=== PATIENT | male | born 2000 | race Caucasian/White ===

== ENCOUNTER 2024-12-26 08:29 | Inpatient (IN) | payer MEDICAID, SELFPAY ==
[2024-12-26] VITALS (8 sets, daily range): BP systolic 107–128; BP diastolic 58–78; PULSE 67–111; RESP 16–24; TEMP 36.6–36.7; O2SAT 90–97; BMI 28.2
--- NOTE | 2024-12-26 08:47 | ED_ITS ---
HPI - Psych General Chief Complaint: Psychiatric Symptoms Stated Complaint: FR STS EMO DIST,SI STS,PT FEELS TRAPPED/NOT TALKIN Time Seen by Provider: 12/26/24 08:46 Source: patient, family (mother), EMS, RN notes reviewed and old records reviewed Mode of arrival: EMS Limitations: altered mental status History of Present Illness ED Provider: Feng HPI Narrative: Patient is a 24-year-old male with history of ADHD not currently on medications presenting to the emergency department with altered mental status. Patient was found outside on the sidewalk rocking back and forth and crying by police. A bystander overheard patient making suicidal statements on the phone. Patient difficult to redirect on arrival, attempting to ambulate/leave, minimally cooperative with changing into hospital garb. Stating only ?I feel trapped, and opening his mouth as though he was screaming but with no sound coming out. Odor of ethanol detectable on his breath. When asked what his name was, he typed his last name on the computer. Related Data Home Medications ?Medication ?Instructions ?Recorded ?Confirmed No Known Home Meds 12/28/24 12/28/24 Allergies Allergy/AdvReac Type Severity Reaction Status Date / Time No Known Allergies Allergy Verified 12/26/24 18:43 Review of Systems 2 Review of Systems: As per HPI. Yes all other systems are reviewed and are negative Constitutional: Constitutional: Reports as per HPI Neurologic: Reports confusion Psychiatric: Psychiatric: Reports confusion [facility] Social History Social History Household Members: Family Housing: House Do you presently have visiting nurse or other home services: No Patient Tobacco Use Status: Current everyday Tobacco user Tobacco use type: Smokeless Tobacco Smoked in Last 30 Days: Yes e-Cigarette/Vaping Use: Currently Using Frequency of e-Cigarette/Vaping Use: Daily Patient Interested in Nicotine Replacement: No (Pt reported he does not want to use) Patient Given Instructions on How to Stop Smoking: Yes Date Education Initiated: 12/28/24 Second Hand Smoke Exposure: No Use of substances other than those prescribed or required for medical reasons: No Currently Displaying Signs/Symptoms of Drug Intoxication Withdrawal: No Have you been hit, kicked, punched, or otherwise hurt by someone within the past year? If so, by whom?: No Do you feel safe in your current relationship?: No Current Relationship Is there a partner from a previous relationship who is making you feel unsafe now?: No Are you made to feel afraid or neglected: No Advance Directives: No Advance Directives Information Provided: Yes Do you have thoughts of harming others: None Do you have a plan to hurt others: No Plan Recently lost weight without trying: Yes How much weight loss: 34pounds or more Eating poorly because of decreased appetite: Yes Nutrition screen score: 7 Nutrition Risks: No Nutritional Risk Poor oral hygiene: No service: No Sexual orientation: Straight/Heterosexual Physical Exam 2 Vital Signs: Vital Signs: Last Vital Signs Temp 97.5 F 12/30/24 08:00 Pulse 75 12/30/24 08:00 Resp 18 12/30/24 08:00 BP 144/76 H 12/30/24 08:00 Pulse Ox 99 12/30/24 08:00 O2 Del Method Room Air 12/30/24 08:00 BMI result Body Mass Index 28.2 Vital signs have been reviewed and appear to be correct. Blood pressure normal. Heart rate normal. Respiratory rate normal. Oxygen saturation normal. Const: General: healthy appearing, alert, awake, confusion and intoxicated appearing Nutritional Appearance: average body habitus O rientation/consciousness: oriented to person and confusion Limitations: a ltered mental status HEENT: Head: Yes normocephalic and Yes atraumatic Ears: external ears normal General nose exam: Normal external nose present Face and sinus: Yes face symmetric Mouth: oropharynx normal and moist mucous membranes Throat: Yes uvula midline Eyes: Pupils: Equal, round and reactive pupils present Neck: Neck: Yes normal visual inspection and Yes supple Resp: Effort & Inspection: normal respiratory effort and able to speak in complete sentences Auscultation: clear to auscultation bilaterally Cardio: Rate: regular rate Rhythm: regular rhythm Heart sounds: S1 normal heart sound present and S2 normal heart sound present GI: Palpation (GI): Soft to palpation and nontender Auscultation: n ormoactive bowel sounds : General: Yes no CVA tenderness Back/Spine/Pelvis: Back: no CVA tenderness Skin: General skin exam: elasticity normal and turgor normal Neuro: General: oriented to person, moves all extremities, no focal motor deficits, CN's II-XI intact bilaterally and confusion Cranial nerves: Yes Equal, round and reactive pupils present Cognition (Neuro): normal cognition Extrem: General: Yes full ROM, Yes no pedal edema and Yes no calf tenderness Psych: Appearance: grossly normal Speech and movement: Other speech and movement exam findings present (Psych) (stating only I feel trapped on arrival to ED, otherwise nonverbal) Affect: Labile affect present Course Reevaluation(s) Reevaluation #1: Mother now at bedside to provide additional information. [facility] patient lives with her but only comes home around once per week, otherwise stays with friends. She notes that over the past 6 months she has noticed a change in his behavior. She drug tested him at home 2 weeks ago and he was positive for cocaine and marijuana at that time. [facility] she was aware he was using marijuana but was not aware of the cocaine. [facility] he has been making statements about feeling depressed/suicidal but has not seeked help. His insurance ran out in November when he turned 24, so he is currently without health insurance. She had asked him to come home today so that she could go over health insurance options with him. Time: 10:38 Reevaluation #2: Patient has not provided urine specimen yet, but is now awake and alert. Will medically clear and place on physician observation for care team evaluation at this time. Time: 18:04 Reevaluation #3: Time: 15:03 Date: 12/27/24 Provider: Melinda Swartz MD Patient in physician observation for psychiatric evaluation.? No acute events reported overnight. No current complaints. VS stable.? Patient is in bed search status. Will continue to monitor. At 1700 on 12/27 patient's care transition to next emergency department provider. Additional Reevaluation(s): 12/28/2024 DR. Puente's Progress note 9:39: AAO x3 care team input is appreciated, VSS, no issue overnight by nursing, bed search is underway. Medications Administered Generic Name Dose Route Start Last Admin Trade Name Freq PRN Reason Stop Dose Admin Hydroxyzine HCl 25 mg 12/28/24 18:47 12/30/24 13:23 Hydroxyzine Hcl 25 Mg Tablet PO 25 mg Q6H PRN Administration mild anxiety Lorazepam 1 mg 12/30/24 11:10 12/30/24 12:52 Lorazepam 1 Mg Tablet PO 12/31/24 09:01 1 mg BID IMER Administration Lurasidone HCl 20 mg 12/29/24 21:00 12/29/24 21:48 Lurasidone Hcl 20 Mg Tablet PO 20 mg BEDTIME IMER Administration Olanzapine 5 mg 12/29/24 15:57 12/30/24 13:23 Olanzapine 5 Mg Tablet PO 5 mg Q4H PRN Administration agitation Prazosin HCl 1 mg 12/29/24 21:00 12/29/24 21:48 Prazosin Hcl 1 Mg Capsule PO 1 mg BEDTIME IMER Administration Protocol Trazodone HCl 50 mg 12/28/24 18:47 12/29/24 21:48 Trazodone Hcl 50 Mg Tablet PO 50 mg BEDTIME [id number] PRN Administration Insomnia Discontinued Medications Generic Name Dose Route Start Last Admin Trade Name Freq PRN Reason Stop Dose Admin Diazepam 5 mg 12/26/24 08:53 12/26/24 09:00 Diazepam 10 Mg/2 Ml Cartridge IM 12/26/24 08:54 5 mg STAT STA Administration Haloperidol Lactate 5 mg 12/26/24 08:53 12/26/24 09:00 Haloperidol Lactate 5 Mg/Ml Vial IM 12/26/24 08:54 5 mg ONCE ONE Administration Lorazepam 1 mg 12/28/24 15:27 12/28/24 15:49 Lorazepam 1 Mg Tablet PO 1 mg ONCE PRN Administration Anxiety Lorazepam 1 mg 12/28/24 18:47 12/29/24 16:07 Lorazepam 1 Mg Tablet PO 1 mg Q2H PRN Administration [facility] 8-11 Medical Decision Making Medical Decision Making [facility] Narrative: Patient is a 24-year-old male with history of ADHD not currently on medications presenting to the emergency department with altered mental status. Upon arrival, mother expressing concern about decompensation over past few months, patient making depressed/suicidal statements and using multiple substances. On exam patient is awake, A+Ox1, oriented only to person on arrival, VS WNL, physical exam findings as above. Given reported symptoms and physical exam findings, initial differential includes but is not limited to drug or alcohol intoxication or withdrawal, depression, suicidal ideation, electrolyte abnormality. No signs of trauma to suggest fall. Plan for medical clearance then CARE team evaluation. Labs unremarkable. Ethanol 89. Urine drug screen pending. Patient medicated with haldol and valium on arrival (Ativan shortage), so currently asleep. Differential Diagnosis Differential Diagnoses: The differential diagnosis associated with the presentation includes as per [facility] Admission/Observation Consideration of admission/observation: Escalation of care including admission/observation considered Consult Healthcare Provider Management of the patient was discussed with: Behavioral Health Provider Lab Data [facility] Lab Attestation statement: I reviewed the patient's lab results. as per [facility] 12/26/24 09:40 12/26/24 09:40 Labs: Lab Results 12/26/24 12/27/24 Range/Units 09:40 08:03 WBC 9.4 (4.8-10.8) X10*3/uL RBC 4.97 (4.60-5.80) X10*6/uL Hgb 14.5 (14.0-18.0) g/dl Hct 42.7 (42.0-52.0) % MCV 85.9 (80.0-98.0) fL MCH 29.2 (27.0-33.0) pg MCHC 34.0 (31.0-36.0) g/dl RDW 13.4 (11.0-16.0) % Plt Count 367 (160-400) X10*3/uL MPV 10.1 (9.4-12.4) fL Immature Gran % (Auto) 0.2 (0.0-0.4) % Neut % (Auto) 72.6 (45-73) % Lymph % (Auto) 19.0 L (20-40) % [place] % (Auto) 6.7 (2-11) % Eos % (Auto) 0.9 (0-4) % Baso % (Auto) 0.6 (0-2) % Lymph # (Auto) 1.8 (1.2-4.9) X10*3/uL [place] # (Auto) 0.6 (0.1-1.2) X10*3/uL Eos # (Auto) 0.1 (0.0-0.4) X10*3/uL Baso # (Auto) 0.1 (0.0-0.2) X10*3/uL Abs Immat Gran (auto) 0.02 (0.00-0.03) X10*3/uL Absolute Neuts (auto) 6.8 (2.0-8.3) x10*3/uL Absolute Nucleated RBC 0.000 (0.0-0.012) X10*3/uL Nucleated RBC % (auto) 0.0 (0.0-0.2) /100WBC Sodium 142 (135-145) mmol/L Potassium 3.4 (3.3-5.1) mmol/L Chloride 107 (96-108) mmol/L Carbon Dioxide 24 (22-29) mmol/L Anion Gap 14 (12-20) BUN 10 (9-16) mg/dL Creatinine 0.70 (0.5-1.4) mg/dL Estim Creat Clear Calc 163.5 Estimated GFR > 60 Random Glucose 99 (60-115) mg/dL Calcium 8.9 (8.4-10.2) mg/dL Total Bilirubin 0.3 (0.0-1.0) mg/dL AST 22 (5-37) U/L ALT 29 (0-40) U/L Alkaline Phosphatase 65 (39-117) U/L Total Protein 7.3 (6.5-8.0) g/dL Albumin 4.3 (3.5-5.0) g/dL Urine Color Yellow Urine Appearance Turbid Urine pH 6.5 (5.0-9.0) Ur Specific [place] 1.025 (1.005-1.025) Urine Protein Trace (Neg-Trace) mg/dL Urine Glucose (UA) Negative (Negative) mg/dL Urine Ketones Negative (Negative) mg/dL Urine Blood Negative (Negative) Urine Nitrite Negative (Negative) Ur Leukocyte Esterase Small (1+) H (Negative) Urine RBC 0-2 (0-2) /HPF Urine WBC 0-5 (0-5) /HPF Ur Squamous Epith Cells 0-2 (0-2) /HPF Other Crystals Present Urine Bacteria None Seen (None Seen) Hyaline Casts 0-2 (0-2) /LPF Salicylates < 5.0 L (15-30) mg/dL Urine Opiates Screen Not Detected (Not Detect) Ur Buprenorphine Scrn Not Detected (Not Detect) ng/mL Ur Oxycodone Screen Not Detected (Not Detect) ng/mL Urine Methadone Screen Not Detected (Not Detect) ng/mL Urine Fentanyl Screen Not Detected (Not Detect) Acetaminophen < 3 (<30) mcg/mL Ur Barbiturates Screen Not Detected (Not Detect) Ur Phencyclidine Scrn Not Detected (Not Detect) Ur Amphetamines Screen Not Detected (Not Detect) U Benzodiazepines Scrn POSITIVE H (Not Detect) Urine Cocaine Screen POSITIVE H (Not Detect) U Marijuana (THC) Screen POSITIVE H (Not Detect) Ethyl Alcohol 89 mg/dL Discharge Plan Discharge Clinical Impression: MDD (major depressive disorder) Patient Disposition: Admitted As Inpatient Interventions: Admission Worksheet (ED) Last Done: 12/28/24 20:49 Discharge Date/Time: 12/28/24 20:50
[2024-12-26] MEDS: diazePAM 10 MG/2 ML CARTRIDGE 5 MG IM (09:00)
[2024-12-26] MEDS: Haloperidol Lactate 5 MG/ML VIAL IM (09:00)
--- NOTE | 2024-12-26 09:08 | ECG_ITS ---
Test Reason : PHYCH Blood Pressure : */* mmHG Vent. Rate : 81 BPM Atrial Rate : 81 BPM P-R Int : 152 ms QRS Dur : 108 ms QT Int : 380 ms P-R-T Axes : 59 42 35 degrees QTcB Int : 441 ms Normal sinus rhythm ST elevation, consider early repolarization, pericarditis, or injury Nonspecific ST and T wave abnormality Abnormal ECG No previous ECGs available Referred By: Delma Toney Electronically Signed By: Renny Kumari
[2024-12-26 09:46] LABS: MANUAL DIFF FLAG NO
--- NOTE | 2024-12-26 09:49 | PC.NURSE ---
Pt comes to ED today via EMS after being found on the sidewalk outside his apt building by PD. Per EMS, Pt was found rocking back and fourth and crying; a neighbor/friend overheard Pt on the phone making suicidal statements. On arrival Pt is uncooperative, combative, inconsolable and exit seeking. Pt does not allow of eval of VS and will not talk to medical staff. Pt given IM Haldol and Valium with good result--VS assessed Q15 mins per protocol and paper documentation completed. Pt is now resting quietly with NAD. VSS, blood work pending. Mother in waiting room and will be brought back.
[2024-12-26 09:54] LABS: Basophils Absolute Auto 0.1 X10*3/uL (0.0-0.2); Basophils Percent Auto 0.6 % (0-2); Eosinophils Absolute Auto 0.1 X10*3/uL (0.0-0.4); Eosinophils Percent Auto 0.9 % (0-4); Hematocrit 42.7 % (42.0-52.0); Hemoglobin 14.5 g/dl (14.0-18.0); Imm Gran Abs Auto 0.02 X10*3/uL (0.00-0.03); Imm Gran Pct Auto 0.2 % (0.0-0.4); Lymphocytes Absolute Auto 1.8 X10*3/uL (1.2-4.9); Mean Corpuscular Hemoglobin 29.2 pg (27.0-33.0); Mean Corpuscular Volume 85.9 fL (80.0-98.0); Mean Platelet Volume 10.1 fL (9.4-12.4); Monocytes Absolute Auto 0.6 X10*3/uL (0.1-1.2); Monocytes Percent Auto 6.7 % (2-11); Neutrophils Absolute Auto 6.8 x10*3/uL (2.0-8.3); Neutrophils Percent Auto 72.6 % (45-73); Platelet Count 367 X10*3/uL (160-400); Red Blood Count 4.97 X10*6/uL (4.60-5.80); Red Cell Distribution Width 13.4 % (11.0-16.0); White Blood Count 9.4 X10*3/uL (4.8-10.8)
[2024-12-26 10:02] LABS: Alanine Aminotransferase 29 U/L (0-40); Albumin Level 4.3 g/dL (3.5-5.0); Alkaline Phosphatase 65 U/L (39-117); Anion Gap 14 (12-20); Aspartate Amino Transferase 22 U/L (5-37); Bilirubin Total 0.3 mg/dL (0.0-1.0); Blood Urea Nitrogen 10 mg/dL (9-16); Calcium 8.9 mg/dL (8.4-10.2); Carbon Dioxide 24 mmol/L (22-29); Chloride 107 mmol/L (96-108); Creatinine Clr Calc Pharmacy 163.5; Estimated Glomerular Filt Rate > 60; Ethanol 89 mg/dL; Glucose Random 99 mg/dL (60-115); Potassium 3.4 mmol/L (3.3-5.1); Sodium 142 mmol/L (135-145); Total Protein 7.3 g/dL (6.5-8.0)
[2024-12-26 10:03] LABS: Acetaminophen LAB < 3 mcg/mL (<30); Salicylate < 5.0 mg/dL (15-30)
--- NOTE | 2024-12-26 11:17 | PC.NURSE ---
IM medication administration documentation given to battery charger tester Aggie for review. CATIE Odonnell submitted documentation to clinical coordinators.
--- NOTE | 2024-12-26 18:47 | PC.NURSE ---
Assumed care of patient at 1845, patient calm and cooperative, offering no complaints to this RN. Continue plan of care for CARE team mariama
[2024-12-27 06:07] VITALS: BP 125/88; PULSE 74; RESP 16; TEMP 36.3; O2SAT 97
[2024-12-27 08:15] LABS: Appearance Urine Turbid; Color Urine Yellow; Glucose Urine UA Negative (Negative); Leukocyte Esterase Urine Small (1+) (Negative); Nitrite Urine Negative (Negative); PH 6.5 (5.0-9.0); Specific Gravity - Urine 1.025 (1.005-1.025); UMIC TRIGGER UACC YES; Urine Blood Negative (Negative); Urine Ketones Negative (Negative); Urine Protein Trace mg/dL (Neg-Trace)
[2024-12-27 08:24] LABS: Bacteria Urine None Seen (None Seen); Hyaline Casts Urine 0-2 /LPF (0-2); RBC Urine 0-2 /HPF (0-2); Squamous Epithelial Cell Urine 0-2 /HPF (0-2); UACC Culture Trigger YES; WBC Urine 0-5 /HPF (0-5)
[2024-12-27 08:27] LABS: Other Crystals Urine Present
[2024-12-27 08:31] LABS: Amphetamine Screen Urine Not Detected (Not Detect); Barbiturates, Urine Not Detected (Not Detect); Benzodiazepines Screen Urine POSITIVE (Not Detect); Buprenorphine Scr Not Detected (Not Detect); Cannabinoid Screen Urine POSITIVE (Not Detect); Cocaine Screen Urine POSITIVE (Not Detect); Fentanyl, urine Not Detected (Not Detect); Methadone Screen, Urine Not Detected (Not Detect); Opiate Screen Urine Not Detected (Not Detect); Oxycodone Screen Urine Not Detected (Not Detect); Phencyclidine Screen Urine Not Detected (Not Detect)
--- NOTE | 2024-12-27 08:34 | MHC.CARE ---
Pt will be an inpatient bedsearch.
--- NOTE | 2024-12-27 09:58 | PHA.MEDREC ---
Pharmacy Consult ? Medication Reconciliation Pharmacy has completed the medication reconciliation. Patient states he takes nothing. Last fills were back in July, so this matches claims.
--- NOTE | 2024-12-27 10:10 | MHC.EDTECH ---
this pct handed over shower supplies to patient since he asked if he can shower and wash his face .
--- NOTE | 2024-12-27 11:07 | MHC.RECOVRN ---
T/W went to meet [facility] pt. in [facility] 8 after receiving request from Care Team for support and resources. It was reported that pt. had a recent uptick in use of substances and parent felt that his was beginning to interfere with pt's daily commitments. Pt utox positive for ETOH, THC and CRISTIAN. Pt is in POD awaiting an inpt. psych admit. Pt did not elaborate on his substance use when given the opportunity but was open to actively listening to resources provided and multiple pathways to recovery. Written resources including the contact info for [facility] left with pt. Pt denied any other questions/concerns. ACS support available PRN.
[2024-12-27 15:18] VITALS: BP 136/75; PULSE 81; RESP 14; TEMP 36.4; O2SAT 99
--- NOTE | 2024-12-27 20:02 | MHC.EDTECH ---
pt set up with necessary supplies for a shower upon request
[2024-12-28 06:17] VITALS: BP 123/79; PULSE 60; RESP 16; TEMP 36.6; O2SAT 98
[2024-12-28 15:34] VITALS: BP 140/99; PULSE 78; RESP 14; TEMP 36.2; O2SAT 97
[2024-12-28] MEDS: LORazepam 1 MG TABLET PO (15:49)
--- NOTE | 2024-12-28 15:55 | PC.NURSE ---
Assumed care of pt at 0700. Pt resting in bed quietly, a/ox3, respirations even and unlabored, no increased wob/sob noted, denies sob/cp. Pt denies SI/HI/AH/VH to this RN. Pt independent/ambulatory around the unit. Pt updated on plan of care.
--- NOTE | 2024-12-28 15:58 | PC.NURSE ---
Pt endorsing anxiety to this RN. Pt pacing up and down hallway stimming, stating he is feeling an increase in anxiety. MD Puente made aware. 1mg PO Ativan given- pt resting quietly in bed, noise minimized for relaxing environment. All needs met at this time.
[2024-12-28 20:00] VITALS: BP 132/74; PULSE 98; RESP 18; TEMP 36.4; O2SAT 97
[2024-12-28 21:58] VITALS: BMI 34.5
[2024-12-28] MEDS: hydrOXYzine HCL 25 MG TABLET PO (22:08)
[2024-12-28] MEDS: traZODone HCL 50 MG TABLET PO ×2 (22:08→23:05)
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
[2024-12-29 08:00] VITALS: BP 136/93; PULSE 68; RESP 16; TEMP 36.2; O2SAT 100
[2024-12-29 08:42] LABS: Cholesterol 200 mg/dL (<200); HDL Cholesterol 34 mg/dL (>40); LDL Cholesterol Calculated 141 mg/dL (<100); Triglycerides 126 mg/dL (<150)
[2024-12-29] MEDS: LORazepam 1 MG TABLET PO ×3 (08:47→16:07)
[2024-12-29 08:51] LABS: Estimated Average Glucose 108 mg/dL; Hemoglobin A1C 144.7453 umol/L; Hemoglobin A1c % 5.4 % (<6.0); Total Hemoglobin (HGBA1C) 4103.8028 umol/L
[2024-12-29 08:58] LABS: Free T4 (Free Thyroxine) 1.14 ng/dL (0.71-1.85); Thyroid Stimulating Hormone 1.93 uIU/mL (0.32-4.0)
[2024-12-29 09:10] LABS: Folate 8.8 ng/mL (> or = 4.0); Vitamin B12 501 pg/mL (200-900)
--- NOTE | 2024-12-29 11:56 | HO.PSYADMNOT ---
HPI Date of Service: 12/29/24 Chief Complaint: SI depression Sources of Information: patient interviewed, chart reviewed and crisis/core team assessment reviewed HPI Narrative: Patient is a 24-year-old male with history of MDD, PTSD, cocaine use disorder and alcohol use disorder who arrived to ED via ambulance due to suicidal ideation secondary to increased depression. Per crisis report, patient arrived at ED via ambulance after being found by police outside on a sidewalk rocking back and forth and crying. Patient was overheard making suicidal statements on the phone. Patient was minimally cooperative in ED stating, I feel trapped. An opening his mouth as though he was screaming but with no sound coming out. Denies history of inpatient psychiatric hospitalizations, CCS or PHP admissions. Patient reports he uses marijuana, cocaine and psychedelics mushrooms. He is not currently on any psychiatric medications. History of being diagnosed with PTSD and ADHD. Utox positive for benzodiazepines, cocaine and marijuana. Alcohol level 89. During admission assessment, patient presents alert and oriented x3. Calm and cooperative. Patient reports feeling depressed; patient stated, they brought me to the hospital because I was having suicidal thoughts. I was on drugs. The drugs make me feel better and not depressed . Patient reports he feels his depression stems from being adopted . Patient stated, it bothers me that I'm adopted. I had a good childhood with my adopted family. I just started connecting with my biological family and I feel like I'm juggling 2 different lives . denies SI/HI. He reports history of self-injurious behavior via scratching. Patient reports at the age of 13 he considered jumping off of a bridge but his friend stopped him . Denies hx of suicide attempts. Denies history of psychiatric medication. Patient reports poor sleep due to nightmares almost every night . Patient reports auditory hallucinations telling him to harm himself for the past year. He also reports visual hallucinations of shadows . Patient reports he would like to be started on psychiatric medications and be referred to outpatient psychiatric providers. Past Psychiatric History: This is patient's 1st inpatient psychiatric hospitalization. Does not have outpatient psychiatric providers. Denies history of psychiatric medications. Medical Evaluation Reviewed: Yes PMFSH Family History: Unknown Social History: Lives with his mother and father. Single. No kids. Works full-time. High school diploma. Substance History: Patient reports cocaine use daily for the last 3 months. Smokes marijuana daily. Uses psychedelics mushrooms every weekend for the last month. Drinks a bottle of alcohol over 1 week. Trauma History: Yes Diagnostics Vital Signs (24Hr): Vital Signs - 24 hr 12/28/24 15:34 12/28/24 20:00 12/29/24 08:00 Temperature 97.1 F 97.6 F 97.1 F Pulse Rate 78 98 68 Respiratory Rate 14 18 16 Blood Pressure 140/99 H 132/74 136/93 H Pulse Oximetry 97 97 100 Oxygen Delivery Method Room Air Room Air Room Air BMI result Body Mass Index 34.5 Labs 12/26/24 09:40 12/26/24 09:40 Labs: Laboratory Results - last 48 hr 12/29/24 07:56 Estimat Average Glucose 108 Hemoglobin A1c % 5.4 Triglycerides 126 Cholesterol 200 H LDL Cholesterol, Calc 141 H HDL Cholesterol 34 L Vitamin B12 501 Folate 8.8 TSH 1.93 Free T4 1.14 Meds/Allergies Meds Home Medications ?Medication ?Instructions ?Recorded ?Confirmed ?Type No Known Home Meds 12/28/24 12/28/24 History Allergies Allergies Allergy/AdvReac Type Severity Reaction Status Date / Time No Known Allergies Allergy Verified 12/26/24 18:43 Mental Status Exam Mental Status Exam Narrative: Pt is alert and oriented; behavior is cooperative and calm; dressed in casual attire; mood is described as depressed ; eye contact appropriate; Speech is normal rate, volume and not pressured; thought process is organized and goal directed; Thought content is on tx; denies SI/HI. +AH, +VH. Assessment & Plan Assessment & Plan (1) MDD (major depressive disorder), single episode, severe with psychotic features: Status: Acute Code(s): F32.3 - Major depressive disorder, single episode, severe with psychotic features (2) PTSD (post-traumatic stress disorder): Status: Acute Code(s): F43.10 - Post-traumatic stress disorder, unspecified (3) Cocaine use disorder: Status: Acute Code(s): F14.10 - Cocaine abuse, uncomplicated (4) Alcohol use disorder: Status: Acute Code(s): F10.90 - Alcohol use, unspecified, uncomplicated Plan Patient is a 24-year-old male with history of MDD, PTSD, cocaine use disorder and alcohol use disorder who arrived to ED via ambulance due to suicidal ideation secondary to increased depression. Plan: 15 minute safety checks obtain collateral Start: Latuda 20mg PO bedtime Prazosin 1mg PO bedtime encourage groups referral to outpatient psychiatric providers discharge planning Patient educated on: diagnosis, medication risk/benefits and substance abuse Reason for continued inpatient stay Substantial Risk for: med/psych decompensation Statement Statement: I have reviewed the history and physical and performed a pertinent examination on my patient. No changes have occurred unless specified. If the History and Physical was not performed prior to admission, the Hospitalist's service will be consulted for completing the admission physical. Time Spent With Patient Time: Total time managing care of this patient today _60___ minutes.
[2024-12-29 11:57] VITALS: BP 143/72; PULSE 72; RESP 18; TEMP 37.2; O2SAT 99
[2024-12-29] MEDS: hydrOXYzine HCL 25 MG TABLET PO (14:07)
--- NOTE | 2024-12-29 14:56 | MHC.CLN ---
Addendum entered by Renetta Gustafson RD 12/29/24 16:18: PATIENT REPORTS THAT HE IS EATING WELL. [id number] KG APPEARS TO BE CORRECT. Original Note: NUTRITION CONSULT CONSULT FOR PATIENT REPORTS 50# WEIGHT LOSS X 3 MONTHS. 12/26/24=81.6 KG. 12/28/24=100 KG. SUGGESTS ERROR IN WEIGHT. WITH [id number], BMI=34.5, OBESE. LIKELY CONTRIBUTORS TO DECREASED APPETITE IN COMMUNITY INCLUDE ETOH AND SUBSTANCE USE. PLEASE CONSULT RD IF PATIENT WITH POOR PO.
[2024-12-29 16:12] VITALS: BP 132/86; PULSE 97; RESP 16; TEMP 36.9; O2SAT 96
[2024-12-29] MEDS: OLANZapine 5 MG TABLET PO (19:35)
[2024-12-29 21:30] VITALS: BP 135/81; PULSE 98; RESP 16; TEMP 36.5; O2SAT 96
[2024-12-29] MEDS: Lurasidone HCl 20 MG TABLET PO (21:48)
[2024-12-29] MEDS: traZODone HCL 50 MG TABLET PO (21:48)
[2024-12-29] MEDS: Prazosin HCL 1 MG CAPSULE PO (21:48)
--- NOTE | 2024-12-30 04:13 | PC.NURSE ---
Ger observed on the overnight. Patient sleeping at 0000 and 0400 for CIWA assessment. No signs of sweating or fidgeting noted, patient sleeping soundly.
[2024-12-30 07:00] VITALS: BMI 35.2
[2024-12-30 08:00] VITALS: BP 144/76; PULSE 75; RESP 18; TEMP 36.4; O2SAT 99
[2024-12-30] MEDS: LORazepam 1 MG TABLET PO ×2 (12:52→20:42)
[2024-12-30] MEDS: hydrOXYzine HCL 25 MG TABLET PO ×2 (13:23→20:42)
[2024-12-30] MEDS: OLANZapine 5 MG TABLET PO ×2 (13:23→20:42)
--- NOTE | 2024-12-30 13:45 | HO.PSYCHPN ---
Subjective Subjective Date of Service: 12/30/24 Reason For Visit: SI depression Interim History: no issues overnight. per staff, getting ativan for withdrawal Sx. CIWAs 9, 10, 8, 6, 0, 0 overnight. slept 7 hours. Mental Status Exam Mental Status Exam Narrative: Pt is alert and oriented; behavior is cooperative and calm; dressed in casual attire; mood is described as depressed ; eye contact appropriate; Speech is normal rate, volume and not pressured; thought process is organized and goal directed; Thought content is on tx; no SI/HI/AVH expressed. Diagnostics Vital Signs (24Hr): Vital Signs - 24 hr 12/29/24 16:12 12/29/24 21:30 12/30/24 08:00 Temperature 98.4 F 97.7 F 97.5 F Pulse Rate 97 98 75 Respiratory Rate 16 16 18 Blood Pressure 132/86 135/81 144/76 H Pulse Oximetry 96 96 99 Oxygen Delivery Method Room Air Room Air Room Air BMI result Body Mass Index 35.2 Labs 12/26/24 09:40 12/26/24 09:40 Labs: Laboratory Results - last 48 hr 12/29/24 07:56 Estimat Average Glucose 108 Hemoglobin A1c % 5.4 Triglycerides 126 Cholesterol 200 H LDL Cholesterol, Calc 141 H HDL Cholesterol 34 L Vitamin B12 501 Folate 8.8 TSH 1.93 Free T4 1.14 Medications Medications Current Medications Acetaminophen (Acetaminophen 325 Mg Tablet) 650 mg PO Q6H PRN PRN Reason: Headache/Pain, Scale 1-10 Al Hydroxide/Mg Hydroxide (Magnesium Hydrox/Alum Hydrox 30 Ml Oral.Susp) 30 ml PO Q6H PRN PRN Reason: Heartburn/Nausea Hydroxyzine HCl (Hydroxyzine Hcl 25 Mg Tablet) 25 mg PO Q6H PRN PRN Reason: mild anxiety Last Admin: 12/30/24 13:23 Dose: 25 mg Lorazepam (Lorazepam 1 Mg Tablet) 1 mg PO BID IMER Stop: 12/31/24 09:01 Last Admin: 12/30/24 12:52 Dose: 1 mg Lurasidone HCl (Lurasidone Hcl 20 Mg Tablet) 20 mg PO BEDTIME IMER Last Admin: 12/29/24 21:48 Dose: 20 mg Magnesium Hydroxide (Milk Of Magnesia 30 Ml Oral.Susp) 30 ml PO DAILY PRN PRN Reason: Constipation Nicotine Polacrilex (Nicotine Polacrilex 2 Mg Gum) 4 mg BUCCAL Q2H PRN PRN Reason: Nicotine Cravings Olanzapine (Olanzapine 5 Mg Tablet) 5 mg PO Q4H PRN PRN Reason: agitation Last Admin: 12/30/24 13:23 Dose: 5 mg Prazosin HCl (Prazosin Hcl 1 Mg Capsule) 1 mg PO BEDTIME IMER; Protocol Last Admin: 12/29/24 21:48 Dose: 1 mg Trazodone HCl (Trazodone Hcl 50 Mg Tablet) 50 mg PO BEDTIME MRX1 PRN PRN Reason: Insomnia Last Admin: 12/29/24 21:48 Dose: 50 mg Allergies Allergies Allergy/AdvReac Type Severity Reaction Status Date / Time No Known Allergies Allergy Verified 12/26/24 18:43 Assessment & Plan Assessment & Plan (1) MDD (major depressive disorder), single episode, severe with psychotic features: Status: Acute Code(s): F32.3 - Major depressive disorder, single episode, severe with psychotic features (2) PTSD (post-traumatic stress disorder): Status: Acute Code(s): F43.10 - Post-traumatic stress disorder, unspecified (3) Cocaine use disorder: Status: Acute Code(s): F14.10 - Cocaine abuse, uncomplicated (4) Alcohol use disorder: Status: Acute Code(s): F10.90 - Alcohol use, unspecified, uncomplicated Plan Patient is a 24-year-old male with history of MDD, PTSD, cocaine use disorder and alcohol use disorder who arrived to ED via ambulance due to suicidal ideation secondary to increased depression. Plan: 15 minute safety checks obtain collateral Start: Latuda 20mg PO bedtime Prazosin 1mg PO bedtime encourage groups referral to outpatient psychiatric providers discharge planning 12/30: required ativan 3 mg yesterday. DC CIWA, taper at ativan 2 mg today and 1 mg tomorrow, then DC. otherwise continue current mgmt. Reason for continued inpatient stay Substantial Risk for: inability to function Time Spent With Patient Time: Total time managing care of this patient today ____ minutes.
[2024-12-30 20:00] VITALS: BP 143/82; PULSE 93; RESP 18; TEMP 36.3; O2SAT 99
[2024-12-30 20:42] VITALS: BP 143/82
[2024-12-30] MEDS: Prazosin HCL 1 MG CAPSULE PO (20:42)
[2024-12-30] MEDS: Lurasidone HCl 20 MG TABLET PO (20:42)
[2024-12-30] MEDS: traZODone HCL 50 MG TABLET PO (20:42)
[2024-12-30] MEDS: Acetaminophen 325 MG TABLET 650 MG PO (20:43)
[2024-12-31 08:00] VITALS: BP 139/85; PULSE 88; RESP 16; TEMP 36.7; O2SAT 98
--- NOTE | 2024-12-31 08:52 | HO.PSYCHPN ---
Subjective Subjective Date of Service: 12/31/24 Reason For Visit: SI depression Subjective Notes: Conditional Voluntary Interim History: Attending groups. Patient reports he feels his mood is improving; continues to report some anxiety. Observed rocking back and forth at times. Pt stated, rocking helps me clear my head . denies SI/HI/VH. Continues to report auditory hallucinations however, reports the voices are quieting down . Continue current tx plan. Medication Compliance: Yes Side effects from medications: No Attending Groups: Yes Mental Status Exam Mental Status Exam Narrative: Pt is alert and oriented; behavior is cooperative and calm; dressed in casual attire; mood is described as anxious ; eye contact appropriate; Speech is normal rate, volume and not pressured; thought process is organized and goal directed; Thought content is on tx; denies SI/HI/VH. +AH that are quieting down . Diagnostics Vital Signs (24Hr): Vital Signs - 24 hr 12/30/24 20:00 12/30/24 20:42 12/31/24 08:00 Temperature 97.4 F 98.0 F Pulse Rate 93 88 Respiratory Rate 18 16 Blood Pressure 143/82 H 143/82 H 139/85 Pulse Oximetry 99 98 Oxygen Delivery Method Room Air Room Air BMI result Body Mass Index 35.2 Labs 12/26/24 09:40 12/26/24 09:40 Labs: Laboratory Results - last 48 hr 12/29/24 07:56 Estimat Average Glucose 108 Hemoglobin A1c % 5.4 Vitamin B12 501 Folate 8.8 TSH 1.93 Free T4 1.14 Medications Medications Current Medications Acetaminophen (Acetaminophen 325 Mg Tablet) 650 mg PO Q6H PRN PRN Reason: Headache/Pain, Scale 1-10 Last Admin: 12/30/24 20:43 Dose: 650 mg Al Hydroxide/Mg Hydroxide (Magnesium Hydrox/Alum Hydrox 30 Ml Oral.Susp) 30 ml PO Q6H PRN PRN Reason: Heartburn/Nausea Hydroxyzine HCl (Hydroxyzine Hcl 25 Mg Tablet) 25 mg PO Q6H PRN PRN Reason: mild anxiety Last Admin: 12/30/24 20:42 Dose: 25 mg Lorazepam (Lorazepam 1 Mg Tablet) 1 mg PO BID IMER Stop: 12/31/24 09:01 Last Admin: 12/30/24 20:42 Dose: 1 mg Lurasidone HCl (Lurasidone Hcl 20 Mg Tablet) 20 mg PO BEDTIME IMER Last Admin: 12/30/24 20:42 Dose: 20 mg Magnesium Hydroxide (Milk Of Magnesia 30 Ml Oral.Susp) 30 ml PO DAILY PRN PRN Reason: Constipation Nicotine Polacrilex (Nicotine Polacrilex 2 Mg Gum) 4 mg BUCCAL Q2H PRN PRN Reason: Nicotine Cravings Olanzapine (Olanzapine 5 Mg Tablet) 5 mg PO Q4H PRN PRN Reason: agitation Last Admin: 12/30/24 20:42 Dose: 5 mg Prazosin HCl (Prazosin Hcl 1 Mg Capsule) 1 mg PO BEDTIME IMER; Protocol Last Admin: 12/30/24 20:42 Dose: 1 mg Trazodone HCl (Trazodone Hcl 50 Mg Tablet) 50 mg PO BEDTIME MRX1 PRN PRN Reason: Insomnia Last Admin: 12/30/24 20:42 Dose: 50 mg Allergies Allergies Allergy/AdvReac Type Severity Reaction Status Date / Time No Known Allergies Allergy Verified 12/26/24 18:43 Assessment & Plan Assessment & Plan (1) MDD (major depressive disorder), single episode, severe with psychotic features: Status: Acute Code(s): F32.3 - Major depressive disorder, single episode, severe with psychotic features (2) PTSD (post-traumatic stress disorder): Status: Acute Code(s): F43.10 - Post-traumatic stress disorder, unspecified (3) Cocaine use disorder: Status: Acute Code(s): F14.10 - Cocaine abuse, uncomplicated (4) Alcohol use disorder: Status: Acute Code(s): F10.90 - Alcohol use, unspecified, uncomplicated Plan Patient is a 24-year-old male with history of MDD, PTSD, cocaine use disorder and alcohol use disorder who arrived to ED via ambulance due to suicidal ideation secondary to increased depression. Plan: 15 minute safety checks obtain collateral Start: Latuda 20mg PO bedtime Prazosin 1mg PO bedtime encourage groups referral to outpatient psychiatric providers discharge planning 12/30: required ativan 3 mg yesterday. DC CIWA, taper at ativan 2 mg today and 1 mg tomorrow, then DC. otherwise continue current mgmt. 12/31: Attending groups. Patient reports he feels his mood is improving; continues to report some anxiety. Observed rocking back and forth at times. Pt stated, rocking helps me clear my head . denies SI/HI/VH. Continues to report auditory hallucinations however, reports the voices are quieting down . Continue current tx plan. Patient educated on: diagnosis, medication risk/benefits and therapeutic strategies Reason for continued inpatient stay Substantial Risk for: med/psych decompensation Time Spent With Patient Time: Total time managing care of this patient today _20___ minutes.
[2024-12-31] MEDS: LORazepam 1 MG TABLET PO (08:55)
[2024-12-31] MEDS: hydrOXYzine HCL 25 MG TABLET PO (12:03)
[2024-12-31 19:25] VITALS: BP 137/89; PULSE 104; RESP 16; TEMP 37.3; O2SAT 97
[2024-12-31 21:33] VITALS: BP 131/89
[2024-12-31] MEDS: Prazosin HCL 1 MG CAPSULE PO (21:33)
[2024-12-31] MEDS: Lurasidone HCl 20 MG TABLET PO (21:33)
[2025-01-01 08:00] VITALS: BP 139/92; PULSE 86; RESP 16; TEMP 36.9; O2SAT 99
--- NOTE | 2025-01-01 14:59 | HO.PSYCHPN ---
Subjective Subjective Date of Service: 01/01/25 Reason For Visit: SI depression Subjective Notes: Conditional Voluntary Interim History: Attending groups. social with peers. showered. Patient reports feeling better today; pt stated, I feel like I'm in an okay mood today. My voices went away and I haven't heard them today . He reports sleeping well last night. denies SI/HI/VH/AH. Continue current tx plan. Medication Compliance: Yes Side effects from medications: No Attending Groups: Yes Mental Status Exam Mental Status Exam Narrative: Pt is alert and oriented; behavior is cooperative and calm; dressed in casual attire; mood is described as better ; eye contact appropriate; Speech is normal rate, volume and not pressured; thought process is organized; Thought content is on tx; denies SI/HI/VH/AH. Diagnostics Vital Signs (24Hr): Vital Signs - 24 hr 12/31/24 19:25 12/31/24 21:33 01/01/25 08:00 Temperature 99.1 F 98.4 F Pulse Rate 104 H 86 Respiratory Rate 16 16 Blood Pressure 137/89 131/89 139/92 H Pulse Oximetry 97 99 Oxygen Delivery Method Room Air Room Air BMI result Body Mass Index 35.2 Labs 12/26/24 09:40 12/26/24 09:40 Medications Medications Current Medications Acetaminophen (Acetaminophen 325 Mg Tablet) 650 mg PO Q6H PRN PRN Reason: Headache/Pain, Scale 1-10 Last Admin: 12/30/24 20:43 Dose: 650 mg Al Hydroxide/Mg Hydroxide (Magnesium Hydrox/Alum Hydrox 30 Ml Oral.Susp) 30 ml PO Q6H PRN PRN Reason: Heartburn/Nausea Hydroxyzine HCl (Hydroxyzine Hcl 25 Mg Tablet) 25 mg PO Q6H PRN PRN Reason: mild anxiety Last Admin: 12/31/24 12:03 Dose: 25 mg Lurasidone HCl (Lurasidone Hcl 20 Mg Tablet) 20 mg PO BEDTIME IMER Last Admin: 12/31/24 21:33 Dose: 20 mg Magnesium Hydroxide (Milk Of Magnesia 30 Ml Oral.Susp) 30 ml PO DAILY PRN PRN Reason: Constipation Nicotine Polacrilex (Nicotine Polacrilex 2 Mg Gum) 4 mg BUCCAL Q2H PRN PRN Reason: Nicotine Cravings Olanzapine (Olanzapine 5 Mg Tablet) 5 mg PO Q4H PRN PRN Reason: agitation Last Admin: 12/30/24 20:42 Dose: 5 mg Prazosin HCl (Prazosin Hcl 1 Mg Capsule) 1 mg PO BEDTIME IMER; Protocol Last Admin: 12/31/24 21:33 Dose: 1 mg Trazodone HCl (Trazodone Hcl 50 Mg Tablet) 50 mg PO BEDTIME MRX1 PRN PRN Reason: Insomnia Last Admin: 12/30/24 20:42 Dose: 50 mg Allergies Allergies Allergy/AdvReac Type Severity Reaction Status Date / Time No Known Allergies Allergy Verified 12/26/24 18:43 Assessment & Plan Assessment & Plan (1) MDD (major depressive disorder), single episode, severe with psychotic features: Status: Acute Code(s): F32.3 - Major depressive disorder, single episode, severe with psychotic features (2) PTSD (post-traumatic stress disorder): Status: Acute Code(s): F43.10 - Post-traumatic stress disorder, unspecified (3) Cocaine use disorder: Status: Acute Code(s): F14.10 - Cocaine abuse, uncomplicated (4) Alcohol use disorder: Status: Acute Code(s): F10.90 - Alcohol use, unspecified, uncomplicated Plan Patient is a 24-year-old male with history of MDD, PTSD, cocaine use disorder and alcohol use disorder who arrived to ED via ambulance due to suicidal ideation secondary to increased depression. Plan: 15 minute safety checks obtain collateral Start: Latuda 20mg PO bedtime Prazosin 1mg PO bedtime encourage groups referral to outpatient psychiatric providers discharge planning 12/30: required ativan 3 mg yesterday. DC CIWA, taper at ativan 2 mg today and 1 mg tomorrow, then DC. otherwise continue current mgmt. 12/31: Attending groups. Patient reports he feels his mood is improving; continues to report some anxiety. Observed rocking back and forth at times. Pt stated, rocking helps me clear my head . denies SI/HI/VH. Continues to report auditory hallucinations however, reports the voices are quieting down . Continue current tx plan. 01/01: Attending groups. social with peers. showered. Patient reports feeling better today; pt stated, I feel like I'm in an okay mood today. My voices went away and I haven't heard them today . He reports sleeping well last night. denies SI/HI/VH/AH. Continue current tx plan. Patient educated on: diagnosis, medication risk/benefits and therapeutic strategies Reason for continued inpatient stay Substantial Risk for: med/psych decompensation Time Spent With Patient Time: Total time managing care of this patient today _20___ minutes.
[2025-01-01] MEDS: Lurasidone HCl 20 MG TABLET PO (17:21)
[2025-01-01 19:08] VITALS: BP 136/81; PULSE 87; RESP 16; TEMP 36.7; O2SAT 98
[2025-01-01 20:28] VITALS: BP 139/87
[2025-01-01] MEDS: OLANZapine 5 MG TABLET PO (20:28)
[2025-01-01] MEDS: traZODone HCL 50 MG TABLET PO (20:28)
[2025-01-01] MEDS: Prazosin HCL 1 MG CAPSULE PO (20:28)
[2025-01-02 07:41] VITALS: BP 128/86; PULSE 88; RESP 16; TEMP 36.3; O2SAT 99
--- NOTE | 2025-01-02 09:21 | HO.PSYCHPN ---
Subjective Subjective Date of Service: 01/02/25 Reason For Visit: SI depression Subjective Notes: Conditional Voluntary Interim History: Attending groups. social with peers. Patient reports feeling okay today; pt stated, I'm still not hearing the voices. The medication worked. I plan on going back to my parents house . denies SI/HI/VH/AH. Continue current tx plan. Medication Compliance: Yes Side effects from medications: No Attending Groups: Yes Mental Status Exam Mental Status Exam Narrative: Pt is alert and oriented; behavior is cooperative and calm; dressed in casual attire; mood is described as good ; eye contact appropriate; Speech is normal rate, volume and not pressured; thought process is organized; Thought content is on discharge; denies SI/HI/VH/AH. Diagnostics Vital Signs (24Hr): Vital Signs - 24 hr 01/01/25 19:08 01/01/25 20:28 01/02/25 07:41 Temperature 98.1 F 97.4 F Pulse Rate 87 88 Respiratory Rate 16 16 Blood Pressure 136/81 139/87 128/86 Pulse Oximetry 98 99 Oxygen Delivery Method Room Air Room Air BMI result Body Mass Index 35.2 Labs 12/26/24 09:40 12/26/24 09:40 Medications Medications Current Medications Acetaminophen (Acetaminophen 325 Mg Tablet) 650 mg PO Q6H PRN PRN Reason: Headache/Pain, Scale 1-10 Last Admin: 12/30/24 20:43 Dose: 650 mg Al Hydroxide/Mg Hydroxide (Magnesium Hydrox/Alum Hydrox 30 Ml Oral.Susp) 30 ml PO Q6H PRN PRN Reason: Heartburn/Nausea Hydroxyzine HCl (Hydroxyzine Hcl 25 Mg Tablet) 25 mg PO Q6H PRN PRN Reason: mild anxiety Last Admin: 12/31/24 12:03 Dose: 25 mg Lurasidone HCl (Lurasidone Hcl 20 Mg Tablet) 20 mg PO BEDTIME IMER Last Admin: 01/01/25 17:21 Dose: 20 mg Magnesium Hydroxide (Milk Of Magnesia 30 Ml Oral.Susp) 30 ml PO DAILY PRN PRN Reason: Constipation Nicotine Polacrilex (Nicotine Polacrilex 2 Mg Gum) 4 mg BUCCAL Q2H PRN PRN Reason: Nicotine Cravings Olanzapine (Olanzapine 5 Mg Tablet) 5 mg PO Q4H PRN PRN Reason: agitation Last Admin: 01/01/25 20:28 Dose: 5 mg Prazosin HCl (Prazosin Hcl 1 Mg Capsule) 1 mg PO BEDTIME IMER; Protocol Last Admin: 01/01/25 20:28 Dose: 1 mg Trazodone HCl (Trazodone Hcl 50 Mg Tablet) 50 mg PO BEDTIME MRX1 PRN PRN Reason: Insomnia Last Admin: 01/01/25 20:28 Dose: 50 mg Allergies Allergies Allergy/AdvReac Type Severity Reaction Status Date / Time No Known Allergies Allergy Verified 12/26/24 18:43 Assessment & Plan Assessment & Plan (1) MDD (major depressive disorder), single episode, severe with psychotic features: Status: Acute Code(s): F32.3 - Major depressive disorder, single episode, severe with psychotic features (2) PTSD (post-traumatic stress disorder): Status: Acute Code(s): F43.10 - Post-traumatic stress disorder, unspecified (3) Cocaine use disorder: Status: Acute Code(s): F14.10 - Cocaine abuse, uncomplicated (4) Alcohol use disorder: Status: Acute Code(s): F10.90 - Alcohol use, unspecified, uncomplicated Plan Patient is a 24-year-old male with history of MDD, PTSD, cocaine use disorder and alcohol use disorder who arrived to ED via ambulance due to suicidal ideation secondary to increased depression. Plan: 15 minute safety checks obtain collateral Start: Latuda 20mg PO bedtime Prazosin 1mg PO bedtime encourage groups referral to outpatient psychiatric providers discharge planning 12/30: required ativan 3 mg yesterday. DC CIWA, taper at ativan 2 mg today and 1 mg tomorrow, then DC. otherwise continue current mgmt. 12/31: Attending groups. Patient reports he feels his mood is improving; continues to report some anxiety. Observed rocking back and forth at times. Pt stated, rocking helps me clear my head . denies SI/HI/VH. Continues to report auditory hallucinations however, reports the voices are quieting down . Continue current tx plan. 01/01: Attending groups. social with peers. showered. Patient reports feeling better today; pt stated, I feel like I'm in an okay mood today. My voices went away and I haven't heard them today . He reports sleeping well last night. denies SI/HI/VH/AH. Continue current tx plan. 01/02: Attending groups. social with peers. Patient reports feeling okay today; pt stated, I'm still not hearing the voices. The medication worked. I plan on going back to my parents house . denies SI/HI/VH/AH. Continue current tx plan. Patient educated on: diagnosis and medication risk/benefits Reason for continued inpatient stay Substantial Risk for: med/psych decompensation Time Spent With Patient Time: Total time managing care of this patient today __20__ minutes.
[2025-01-02] MEDS: Lurasidone HCl 20 MG TABLET PO (17:18)
[2025-01-02 19:12] VITALS: BP 137/71; PULSE 86; RESP 15; TEMP 36.6; O2SAT 96
[2025-01-02] MEDS: traZODone HCL 50 MG TABLET PO ×2 (20:12→21:27)
[2025-01-02] MEDS: Prazosin HCL 1 MG CAPSULE PO (20:12)
[2025-01-02] MEDS: OLANZapine 5 MG TABLET PO (20:12)
[2025-01-03 08:00] VITALS: BP 140/91; PULSE 87; RESP 16; TEMP 36.9; O2SAT 99
--- NOTE | 2025-01-03 08:49 | HO.PSYCHPN ---
Subjective Subjective Date of Service: 01/03/25 Reason For Visit: SI depression Subjective Notes: Conditional Voluntary Interim History: Attending groups. social with peers. Patient reports feeling good today; pt reports watching movies to keep himself occupied. denies SI/HI/VH/AH. Continue current tx plan. Medication Compliance: Yes Side effects from medications: No Attending Groups: Yes Mental Status Exam Mental Status Exam Narrative: Pt is alert and oriented; behavior is cooperative and calm; dressed in casual attire; mood is described as good ; eye contact appropriate; Speech is normal rate, volume and not pressured; thought process is organized; Thought content is on discharge; denies SI/HI/VH/AH. Diagnostics Vital Signs (24Hr): Vital Signs - 24 hr 01/02/25 19:12 01/03/25 08:00 Temperature 97.8 F 98.4 F Pulse Rate 86 87 Respiratory Rate 15 16 Blood Pressure 137/71 140/91 H Pulse Oximetry 96 99 Oxygen Delivery Method Room Air Room Air BMI result Body Mass Index 35.2 Labs 12/26/24 09:40 12/26/24 09:40 Medications Medications Current Medications Acetaminophen (Acetaminophen 325 Mg Tablet) 650 mg PO Q6H PRN PRN Reason: Headache/Pain, Scale 1-10 Last Admin: 12/30/24 20:43 Dose: 650 mg Al Hydroxide/Mg Hydroxide (Magnesium Hydrox/Alum Hydrox 30 Ml Oral.Susp) 30 ml PO Q6H PRN PRN Reason: Heartburn/Nausea Hydroxyzine HCl (Hydroxyzine Hcl 25 Mg Tablet) 25 mg PO Q6H PRN PRN Reason: mild anxiety Last Admin: 12/31/24 12:03 Dose: 25 mg Lurasidone HCl (Lurasidone Hcl 20 Mg Tablet) 20 mg PO DAILY@1700 IMER Magnesium Hydroxide (Milk Of Magnesia 30 Ml Oral.Susp) 30 ml PO DAILY PRN PRN Reason: Constipation Nicotine Polacrilex (Nicotine Polacrilex 2 Mg Gum) 4 mg BUCCAL Q2H PRN PRN Reason: Nicotine Cravings Olanzapine (Olanzapine 5 Mg Tablet) 5 mg PO Q4H PRN PRN Reason: agitation Last Admin: 01/02/25 20:12 Dose: 5 mg Prazosin HCl (Prazosin Hcl 1 Mg Capsule) 1 mg PO BEDTIME IMER; Protocol Last Admin: 01/02/25 20:12 Dose: 1 mg Trazodone HCl (Trazodone Hcl 50 Mg Tablet) 50 mg PO BEDTIME MRX1 PRN PRN Reason: Insomnia Last Admin: 01/02/25 21:27 Dose: 50 mg Allergies Allergies Allergy/AdvReac Type Severity Reaction Status Date / Time No Known Allergies Allergy Verified 12/26/24 18:43 Assessment & Plan Assessment & Plan (1) MDD (major depressive disorder), single episode, severe with psychotic features: Status: Acute Code(s): F32.3 - Major depressive disorder, single episode, severe with psychotic features (2) PTSD (post-traumatic stress disorder): Status: Acute Code(s): F43.10 - Post-traumatic stress disorder, unspecified (3) Cocaine use disorder: Status: Acute Code(s): F14.10 - Cocaine abuse, uncomplicated (4) Alcohol use disorder: Status: Acute Code(s): F10.90 - Alcohol use, unspecified, uncomplicated Plan Patient is a 24-year-old male with history of MDD, PTSD, cocaine use disorder and alcohol use disorder who arrived to ED via ambulance due to suicidal ideation secondary to increased depression. Plan: 15 minute safety checks obtain collateral Start: Latuda 20mg PO bedtime Prazosin 1mg PO bedtime encourage groups referral to outpatient psychiatric providers discharge planning 12/30: required ativan 3 mg yesterday. DC CIWA, taper at ativan 2 mg today and 1 mg tomorrow, then DC. otherwise continue current mgmt. 12/31: Attending groups. Patient reports he feels his mood is improving; continues to report some anxiety. Observed rocking back and forth at times. Pt stated, rocking helps me clear my head . denies SI/HI/VH. Continues to report auditory hallucinations however, reports the voices are quieting down . Continue current tx plan. 01/01: Attending groups. social with peers. showered. Patient reports feeling better today; pt stated, I feel like I'm in an okay mood today. My voices went away and I haven't heard them today . He reports sleeping well last night. denies SI/HI/VH/AH. Continue current tx plan. 01/02: Attending groups. social with peers. Patient reports feeling okay today; pt stated, I'm still not hearing the voices. The medication worked. I plan on going back to my parents house . denies SI/HI/VH/AH. Continue current tx plan. 01/03: Patient reports feeling good today; pt reports watching movies to keep himself occupied. denies SI/HI/VH/AH. Continue current tx plan. Patient educated on: diagnosis, medication risk/benefits and therapeutic strategies Reason for continued inpatient stay Substantial Risk for: med/psych decompensation Time Spent With Patient Time: Total time managing care of this patient today _20___ minutes.
[2025-01-03] MEDS: Lurasidone HCl 20 MG TABLET PO (16:57)
[2025-01-03 20:00] VITALS: BP 141/87; PULSE 76; RESP 16; TEMP 36.5; O2SAT 100
[2025-01-03] MEDS: traZODone HCL 50 MG TABLET PO (20:00)
[2025-01-03] MEDS: Prazosin HCL 1 MG CAPSULE PO (20:00)
[2025-01-03] MEDS: OLANZapine 5 MG TABLET PO (20:01)
[2025-01-03] MEDS: hydrOXYzine HCL 25 MG TABLET PO (20:01)
[2025-01-04 08:00] VITALS: BP 156/85; PULSE 85; TEMP 36.3; O2SAT 99
--- NOTE | 2025-01-04 13:53 | HO.PSYCHPN ---
Subjective Subjective Date of Service: 01/04/25 Reason For Visit: SI depression Subjective Notes: Conditional Voluntary Interim History: Patient continues to report improved mood. Pt stated, I no longer feel like scratching myself . denies SI/HI/VH/AH. per nursing, slept 8 hours last night. attending groups. Plan to discharge if mood remains stable; pt aware. Continue current tx plan. Medication Compliance: Yes Side effects from medications: No Attending Groups: Yes Mental Status Exam Mental Status Exam Narrative: Pt is alert and oriented; behavior is cooperative and calm; dressed in casual attire; mood is described as good ; eye contact appropriate; Speech is normal rate, volume and not pressured; thought process is organized; Thought content is on discharge; denies SI/HI/VH/AH. Diagnostics Vital Signs (24Hr): Vital Signs - 24 hr 01/03/25 20:00 01/03/25 20:00 01/04/25 08:00 Temperature 97.7 F 97.3 F Pulse Rate 76 85 Respiratory Rate 16 Blood Pressure 141/87 H 141/87 H 156/85 H Pulse Oximetry 100 99 Oxygen Delivery Method Room Air Room Air BMI result Body Mass Index 35.2 Labs 12/26/24 09:40 12/26/24 09:40 Medications Medications Current Medications Acetaminophen (Acetaminophen 325 Mg Tablet) 650 mg PO Q6H PRN PRN Reason: Headache/Pain, Scale 1-10 Last Admin: 12/30/24 20:43 Dose: 650 mg Al Hydroxide/Mg Hydroxide (Magnesium Hydrox/Alum Hydrox 30 Ml Oral.Susp) 30 ml PO Q6H PRN PRN Reason: Heartburn/Nausea Hydroxyzine HCl (Hydroxyzine Hcl 25 Mg Tablet) 25 mg PO Q6H PRN PRN Reason: mild anxiety Last Admin: 01/03/25 20:01 Dose: 25 mg Lurasidone HCl (Lurasidone Hcl 20 Mg Tablet) 20 mg PO DAILY@1700 IMER Last Admin: 01/03/25 16:57 Dose: 20 mg Magnesium Hydroxide (Milk Of Magnesia 30 Ml Oral.Susp) 30 ml PO DAILY PRN PRN Reason: Constipation Nicotine Polacrilex (Nicotine Polacrilex 2 Mg Gum) 4 mg BUCCAL Q2H PRN PRN Reason: Nicotine Cravings Olanzapine (Olanzapine 5 Mg Tablet) 5 mg PO Q4H PRN PRN Reason: agitation Last Admin: 01/03/25 20:01 Dose: 5 mg Prazosin HCl (Prazosin Hcl 1 Mg Capsule) 1 mg PO BEDTIME IMER; Protocol Last Admin: 01/03/25 20:00 Dose: 1 mg Trazodone HCl (Trazodone Hcl 50 Mg Tablet) 50 mg PO BEDTIME MRX1 PRN PRN Reason: Insomnia Last Admin: 01/03/25 20:00 Dose: 50 mg Allergies Allergies Allergy/AdvReac Type Severity Reaction Status Date / Time No Known Allergies Allergy Verified 12/26/24 18:43 Assessment & Plan Assessment & Plan (1) MDD (major depressive disorder), single episode, severe with psychotic features: Status: Acute Code(s): F32.3 - Major depressive disorder, single episode, severe with psychotic features (2) PTSD (post-traumatic stress disorder): Status: Acute Code(s): F43.10 - Post-traumatic stress disorder, unspecified (3) Cocaine use disorder: Status: Acute Code(s): F14.10 - Cocaine abuse, uncomplicated (4) Alcohol use disorder: Status: Acute Code(s): F10.90 - Alcohol use, unspecified, uncomplicated Plan Patient is a 24-year-old male with history of MDD, PTSD, cocaine use disorder and alcohol use disorder who arrived to ED via ambulance due to suicidal ideation secondary to increased depression. Plan: 15 minute safety checks obtain collateral Start: Latuda 20mg PO bedtime Prazosin 1mg PO bedtime encourage groups referral to outpatient psychiatric providers discharge planning 12/30: required ativan 3 mg yesterday. DC CIWA, taper at ativan 2 mg today and 1 mg tomorrow, then DC. otherwise continue current mgmt. 12/31: Attending groups. Patient reports he feels his mood is improving; continues to report some anxiety. Observed rocking back and forth at times. Pt stated, rocking helps me clear my head . denies SI/HI/VH. Continues to report auditory hallucinations however, reports the voices are quieting down . Continue current tx plan. 01/01: Attending groups. social with peers. showered. Patient reports feeling better today; pt stated, I feel like I'm in an okay mood today. My voices went away and I haven't heard them today . He reports sleeping well last night. denies SI/HI/VH/AH. Continue current tx plan. 01/02: Attending groups. social with peers. Patient reports feeling okay today; pt stated, I'm still not hearing the voices. The medication worked. I plan on going back to my parents house . denies SI/HI/VH/AH. Continue current tx plan. 01/03: Patient reports feeling good today; pt reports watching movies to keep himself occupied. denies SI/HI/VH/AH. Continue current tx plan. 01/04: Patient continues to report improved mood. Pt stated, I no longer feel like scratching myself . denies SI/HI/VH/AH. per nursing, slept 8 hours last night. attending groups. Plan to discharge if mood remains stable; pt aware. Continue current tx plan. Patient educated on: diagnosis, medication risk/benefits and therapeutic strategies Reason for continued inpatient stay Substantial Risk for: med/psych decompensation Time Spent With Patient Time: Total time managing care of this patient today _20___ minutes.
[2025-01-04] MEDS: Lurasidone HCl 20 MG TABLET PO (17:21)
[2025-01-04 20:00] VITALS: BP 135/88; PULSE 85; RESP 16; TEMP 36.5; O2SAT 98
[2025-01-04] MEDS: OLANZapine 5 MG TABLET PO (20:14)
[2025-01-04 20:15] VITALS: BP 135/88
[2025-01-04] MEDS: hydrOXYzine HCL 25 MG TABLET PO (20:15)
[2025-01-04] MEDS: traZODone HCL 50 MG TABLET PO (20:15)
[2025-01-04] MEDS: Prazosin HCL 1 MG CAPSULE PO (20:15)
[2025-01-05 07:15] VITALS: BP 129/82; PULSE 91; RESP 14; TEMP 36.4; O2SAT 97
--- NOTE | 2025-01-05 15:54 | HO.PSYCHPN ---
Subjective Subjective Date of Service: 01/05/25 Reason For Visit: SI depression Interim History: no complaints, planning to discharge tomorrow. per staff, attending groups. elis denied dep/anx. taking meds. slept 8 hours. D/C tomorrow. Mental Status Exam Mental Status Exam Narrative: Pt is alert and oriented; behavior is cooperative and calm; dressed in casual attire; mood is described as good ; eye contact appropriate; Speech is normal rate, volume and not pressured; thought process is organized; Thought content is on discharge; no SI/HI/VH/AH expressed. Diagnostics Vital Signs (24Hr): Vital Signs - 24 hr 01/04/25 20:00 01/04/25 20:15 01/05/25 07:15 Temperature 97.7 F 97.6 F Pulse Rate 85 91 Respiratory Rate 16 14 Blood Pressure 135/88 135/88 129/82 Pulse Oximetry 98 97 Oxygen Delivery Method Room Air Room Air BMI result Body Mass Index 35.2 Labs 12/26/24 09:40 12/26/24 09:40 Medications Medications Current Medications Acetaminophen (Acetaminophen 325 Mg Tablet) 650 mg PO Q6H PRN PRN Reason: Headache/Pain, Scale 1-10 Last Admin: 12/30/24 20:43 Dose: 650 mg Al Hydroxide/Mg Hydroxide (Magnesium Hydrox/Alum Hydrox 30 Ml Oral.Susp) 30 ml PO Q6H PRN PRN Reason: Heartburn/Nausea Hydroxyzine HCl (Hydroxyzine Hcl 25 Mg Tablet) 25 mg PO Q6H PRN PRN Reason: mild anxiety Last Admin: 01/04/25 20:15 Dose: 25 mg Lurasidone HCl (Lurasidone Hcl 20 Mg Tablet) 20 mg PO DAILY@1700 IMER Last Admin: 01/04/25 17:21 Dose: 20 mg Magnesium Hydroxide (Milk Of Magnesia 30 Ml Oral.Susp) 30 ml PO DAILY PRN PRN Reason: Constipation Nicotine Polacrilex (Nicotine Polacrilex 2 Mg Gum) 4 mg BUCCAL Q2H PRN PRN Reason: Nicotine Cravings Olanzapine (Olanzapine 5 Mg Tablet) 5 mg PO Q4H PRN PRN Reason: agitation Last Admin: 01/04/25 20:14 Dose: 5 mg Prazosin HCl (Prazosin Hcl 1 Mg Capsule) 1 mg PO BEDTIME IMER; Protocol Last Admin: 01/04/25 20:15 Dose: 1 mg Trazodone HCl (Trazodone Hcl 50 Mg Tablet) 50 mg PO BEDTIME MRX1 PRN PRN Reason: Insomnia Last Admin: 01/04/25 20:15 Dose: 50 mg Allergies Allergies Allergy/AdvReac Type Severity Reaction Status Date / Time No Known Allergies Allergy Verified 12/26/24 18:43 Assessment & Plan Assessment & Plan (1) MDD (major depressive disorder), single episode, severe with psychotic features: Status: Acute Code(s): F32.3 - Major depressive disorder, single episode, severe with psychotic features (2) PTSD (post-traumatic stress disorder): Status: Acute Code(s): F43.10 - Post-traumatic stress disorder, unspecified (3) Cocaine use disorder: Status: Acute Code(s): F14.10 - Cocaine abuse, uncomplicated (4) Alcohol use disorder: Status: Acute Code(s): F10.90 - Alcohol use, unspecified, uncomplicated Plan Patient is a 24-year-old male with history of MDD, PTSD, cocaine use disorder and alcohol use disorder who arrived to ED via ambulance due to suicidal ideation secondary to increased depression. Plan: 15 minute safety checks obtain collateral Start: Latuda 20mg PO bedtime Prazosin 1mg PO bedtime encourage groups referral to outpatient psychiatric providers discharge planning 12/30: required ativan 3 mg yesterday. DC CIWA, taper at ativan 2 mg today and 1 mg tomorrow, then DC. otherwise continue current mgmt. 12/31: Attending groups. Patient reports he feels his mood is improving; continues to report some anxiety. Observed rocking back and forth at times. Pt stated, rocking helps me clear my head . denies SI/HI/VH. Continues to report auditory hallucinations however, reports the voices are quieting down . Continue current tx plan. 01/01: Attending groups. social with peers. showered. Patient reports feeling better today; pt stated, I feel like I'm in an okay mood today. My voices went away and I haven't heard them today . He reports sleeping well last night. denies SI/HI/VH/AH. Continue current tx plan. 01/02: Attending groups. social with peers. Patient reports feeling okay today; pt stated, I'm still not hearing the voices. The medication worked. I plan on going back to my parents house . denies SI/HI/VH/AH. Continue current tx plan. 01/03: Patient reports feeling good today; pt reports watching movies to keep himself occupied. denies SI/HI/VH/AH. Continue current tx plan. 01/04: Patient continues to report improved mood. Pt stated, I no longer feel like scratching myself . denies SI/HI/VH/AH. per nursing, slept 8 hours last night. attending groups. Plan to discharge if mood remains stable; pt aware. Continue current tx plan. 01/05: mood good, planning to discharge tomorrow. no complaints or requests. Reason for continued inpatient stay Substantial Risk for: stable for discharge Time Spent With Patient Time: Total time managing care of this patient today ____ minutes.
[2025-01-05] MEDS: Lurasidone HCl 20 MG TABLET PO (17:30)
[2025-01-05 19:35] VITALS: BP 139/87; PULSE 93; RESP 16; TEMP 37.1; O2SAT 97
[2025-01-05] MEDS: hydrOXYzine HCL 25 MG TABLET PO (20:13)
[2025-01-05] MEDS: OLANZapine 5 MG TABLET PO (20:14)
[2025-01-05] MEDS: Prazosin HCL 1 MG CAPSULE PO (20:14)
[2025-01-05] MEDS: traZODone HCL 50 MG TABLET PO (20:14)
[2025-01-06 07:56] VITALS: BP 140/92; PULSE 87; RESP 16; TEMP 36; O2SAT 100
--- NOTE | 2025-01-06 09:39 | P.DS_ITS ---
DS: Providers Provider Date of Service: 01/06/25 Date of admission: 12/28/24 14:53 Date of discharge: 01/06/25 Primary care physician: NIHARIKA Yañez Admitting clinician: Gabriela Cornejo Attending physician on admission: Herbert Boyle Consults: 12/28/24 22:43 Addiction Medicine Provider Routine Consulting Provider: Addiction Covering Reason for consultation: Alcohol and Cocaine use disorder Attending physician on discharge: Herbert Boyle Discharging clinician: Gabriela Cornejo DS: Diagnosis Discharge Diagnosis (1) MDD (major depressive disorder), single episode, severe with psychotic features: Status: Acute (2) PTSD (post-traumatic stress disorder): Status: Acute (3) Cocaine use disorder: Status: Acute (4) Alcohol use disorder: Status: Acute DS: Medications Discharge Medications Home Medications: Home Medications ?Medication ?Instructions ?Recorded ?Confirmed No Known Home Meds 12/28/24 12/28/24 Mental Status Exam Mental Status Exam Narrative: Pt is alert and oriented; behavior is cooperative and calm; dressed in casual attire; mood is described as good ; eye contact appropriate; Speech is normal rate, volume and not pressured; thought process is organized; Thought content is on discharge; denies SI/HI/VH/AH. Data Data Completed and Pending Completed studies during hospitalization [Text1]: 12/27/24 Unknown Urine clean catch - Clean Catch Midstream Urine Culture - Final No growth. DS: Summary Hospital Course Hospital Course: Patient is a 24-year-old male with history of MDD, PTSD, cocaine use disorder and alcohol use disorder who arrived to ED via ambulance due to suicidal ideation secondary to increased depression. Per crisis report, patient arrived at ED via ambulance after being found by police outside on a sidewalk rocking back and forth and crying. Patient was overheard making suicidal statements on the phone. Patient was minimally cooperative in ED stating, I feel trapped. An opening his mouth as though he was screaming but with no sound coming out. Denies history of inpatient psychiatric hospitalizations, [facility] or [facility] admissions. Patient reports he uses marijuana, cocaine and psychedelics mushrooms. He is not currently on any psychiatric medications. History of being diagnosed with PTSD and ADHD. Utox positive for benzodiazepines, cocaine and marijuana. Alcohol level 89. During admission assessment, patient presents alert and oriented x3. Calm and cooperative. Patient reports feeling depressed; patient stated, they brought me to the hospital because I was having suicidal thoughts. I was on drugs. The drugs make me feel better and not depressed . Patient reports he feels his depression stems from being adopted . Patient stated, it bothers me that I'm adopted. I had a good childhood with my adopted family. I just started connecting with my biological family and I feel like I'm juggling 2 different lives . denies SI/HI. He reports history of self-injurious behavior via scratching. Patient reports at the age of 13 he considered jumping off of a bridge but his friend stopped him . Denies hx of suicide attempts. Denies history of psychiatric medication. Patient reports poor sleep due to nightmares almost every night . Patient reports auditory hallucinations telling him to harm himself for the past year. He also reports visual hallucinations of shadows . Patient reports he would like to be started on psychiatric medications and be referred to outpatient psychiatric providers. Plan: 15 minute safety checks obtain collateral Start: Latuda 20mg PO bedtime Prazosin 1mg PO bedtime encourage groups referral to outpatient psychiatric providers discharge planning required ativan 3 mg yesterday. DC CIWA, taper at ativan 2 mg today and 1 mg tomorrow, then DC. otherwise continue current mgmt. Attending groups. Patient reports he feels his mood is improving; continues to report some anxiety. Observed rocking back and forth at times. Pt stated, rocking helps me clear my head . denies SI/HI/VH. Continues to report auditory hallucinations however, reports the voices are quieting down . Continue current tx plan. Attending groups. social with peers. showered. Patient reports feeling better today; pt stated, I feel like I'm in an okay mood today. My voices went away and I haven't heard them today . He reports sleeping well last night. denies SI/HI/VH/AH. Continue current tx plan. Attending groups. social with peers. Patient reports feeling okay today; pt stated, I'm still not hearing the voices. The medication worked. I plan on going back to my parents house . denies SI/HI/VH/AH. Continue current tx plan. 01/03: Patient reports feeling good today; pt reports watching movies to keep himself occupied. denies SI/HI/VH/AH. Continue current tx plan. Patient continues to report improved mood. Pt stated, I no longer feel like scratching myself . denies SI/HI/VH/AH. per nursing, slept 8 hours last night. attending groups. Plan to discharge if mood remains stable; pt aware. Continue current tx plan. mood good, planning to discharge tomorrow. no complaints or requests. Patient continues to report feeling good ; looking forward to discharging. denies SI/HI/VH/AH. Pt plans on following up with his outpatient providers. Status at Discharge Cognitive/behavioral status at discharge: Patient has insight and demonstrates good judgment in terms of wanting to pursue treatment. Patient has a safety plan that includes presenting to the closest ER or calling 911 if feeling unsafe. Functional status at discharge: independent ambulation Overall status at discharge: patient is back to baseline Time Spent with Patient Time attestation: Total time managing care of this patient today _20___ minutes. Time spent: Less than 30 minutes Discharge Plan Discharge Anticipated Discharge Date/Time: 01/06/25 09:37 Patient Disposition: Home, Self-Care Discharge Diagnosis: MDD, PTSD, Cocaine use d/o, Alcohol use d/o Referrals: Roxy Gordon (Therapy) [Other] - 01/12/25 1:00 pm (IN OFFICE APPOINTMENT -Please arrive 15 minutes early to your appointment in order to fill out necessary paperwork. Please also bring your insurance card to the appointment with you. ) Raiza Horowitz (Psychiatry) [Other] - 02/02/25 10:20 am (TELEHEALTH APPOINTMENT -Psychiatric Evaluation ) Raiza Horowitz (Psychiatry) [Other] - 03/03/25 11:00 am (TELEHEALTH APPOINTMENT -Medication Management ) Dylan Carmona PA [Primary Care Provider] - 1 Week (01-05-25 Your primary care provider was notified of your discharge and will be calling back with the date and time of your follow up appt.) Discharge Medications: New prazosin 1 mg Capsule 1 mg PO BEDTIME 30 Days Qty: 30 0RF Protocol: Hold for SBP< HOLD for SBP < : 90 lurasidone [Latuda] 20 mg Tablet 20 mg PO DAILY@1700 30 Days Qty: 30 0RF Discharge Orders: Discharge Order (Routine); Ordered 01/06/25 Ordered By: Gabriela Cornejo Diet: Regular diet Activity on Discharge: As tolerated Stand Alone Forms: Patient Portal Discharge page, Community Support Print Language: Irish Care Plan Goals: Maintain mood and safe behaviors Take medications as prescribed Continue to pursue sobriety Practice coping skills Continue with outpatient providers and reach out to them as needed Health Concerns: Mood stability and behaviors Sobriety Plan of Treatment: Follow up with your PCP, psychiatric provider and other outpatient providers regarding above concerns Take medications as prescribed Assessment: Patient has insight and demonstrates good judgment in terms of wanting to pursue treatment. Patient has a safety plan that includes presenting to the closest ER or calling 911 if feeling unsafe. Discharge Date/Time: 01/06/25 10:25
[2025-01-06] MEDS: Naloxone HCl Nasal TAKE HOME 4 MG SPRAY 8 MG NOSTRILALT (10:10)
== END 2025-01-06 10:25 | disposition home or self-care (01) | DRG 751 ==
LOC: HO.ED 12-28 15:17 → HO.PADLT16 12-28 15:26
PROVIDERS: Registered Nurse Emergency; Admitting Provider Psychiatry & Neurology Psychiatry; Emergency Provider Emergency Medicine; PCP Physician Assistant; Responsible Provider Registered Nurse; Visit Provider Psychiatry & Neurology Psychiatry
DX: F32.3 Major depressive disorder, single episode, severe with psychotic features (principal); R45.851 Suicidal ideations; F10.90 Alcohol use, unspecified, uncomplicated; F17.210 Nicotine dependence, cigarettes, uncomplicated; F14.10 Cocaine abuse, uncomplicated; Y90.4 Blood alcohol level of 80-99 mg/100 ml; Z71.6 Tobacco abuse counseling; F43.10 Post-traumatic stress disorder, unspecified; Z79.899 Other long term (current) drug therapy
CPT/HCPCS: 36415; 80053; 80061; 80143; 80179; 80307; 81001; 82607; 82746; 83036; 84439; 84443; 85025; 87086; 93005; 99285; J1630; J3360; S9485

== ENCOUNTER → 2024-12-26 09:08 | Outpatient (BNV) | payer SELFPAY | PROVIDERS: Emergency Provider Emergency Medicine; PCP Physician Assistant; Visit Provider Internal Medicine Cardiovascular Disease | DX: I21.29 ST elevation (STEMI) myocardial infarction involving other sites (principal) | CPT/HCPCS: 93010 ==

== ENCOUNTER → 2024-12-28 14:53 | Outpatient (BNV) | payer MEDICAID, SELFPAY | PROVIDERS: Admitting Provider Psychiatry & Neurology Psychiatry; Emergency Provider Emergency Medicine; PCP Physician Assistant; Responsible Provider Registered Nurse; Visit Provider Psychiatry & Neurology Psychiatry | DX: F32.3 Major depressive disorder, single episode, severe with psychotic features (principal); F14.10 Cocaine abuse, uncomplicated; F10.90 Alcohol use, unspecified, uncomplicated; F43.11 Post-traumatic stress disorder, acute | CPT/HCPCS: 90792; 99231; 99232 ==